=== PATIENT | male | born 1965 | race Caucasian/White ===

== ENCOUNTER 2025-09-30 08:27 | Outpatient (OUT) | payer BC, SELFPAY ==
--- OUTSIDE RECORDS SUMMARY | 2025-04-29 03:45 | XMS_ITS ---
Author Organization [facility] vices Address [address] [place], [place] [id number] Care Team Providers Care Bell Staff Name Role Phone Gardenia Zheng [phone] REASON FOR VISIT Tx. 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 Tx. Plan Prior. 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 Plan: * Treatment: * Billing Information: * Visit Code: * Procedure Codes: * Electronic signature of Gardenia Zheng DMD on 09/30/2025 at 08:29 AM ESTSign off status: Pending * Provider: Sara Zheng DMD Date: 0 04/29/2025 Generated for Printing/Faxing/eTransmitting on:?09/30/2025 08:29 AM EST
--- OUTSIDE RECORDS SUMMARY | 2025-09-06 10:30 | XMS_ITS ---
Author Organization [facility] vices Address [address] [place] [phone] Care Team Providers Care Clinical Informatics Physician Name Role Phone Gardenia Zheng Unavailable [phone] Angeli Dixon Unavailable REASON FOR VISIT flu vaccine Social History Sex Assigned At : Social History Observation Description Sex Assigned At Male Encounters Encounter Location Date Provider Diagnosis Main [address] [place] [phone] 09/06/2025 Angeli Dixon Plan Of Treatment Next Appt Details Provider Name:Vidhi Starkey graham, 11/01/2025 07:45:00 AM, [address] [place], [place], [phone], Progress Notes * Diallo LAZO GDOB: [birth year] (60 yo M)Acc No.[id number]:09/06/2025 Nurse Visit Note Patient: Papo Diallo CUMMINGS :?Agneli Dixon, SONYA-CDOB:1965???Age:59 Y ???Sex:MaleDate:09/06/2025Phone:[phone]:[address], [id number] Subjective: * Chief Complaints: * 1 . Flu vaccine. * Medical History: Objective: * Vitals: Assessment: Plan: * Treatment: * Billing Information: * Visit Code: * Procedure Codes: * Electronic signature of JESUS Augustin on 09/30/2025 at 08:30 AM EST Sign off status: Pending * Provider: JESUS Farrar Date: Generated for Printing/Faxing/eTransmitting on:?09/30/2025 08:30 AM EST
--- OUTSIDE RECORDS SUMMARY | 2025-09-16 13:00 | XMS_ITS | Encounter Summary ---
Author Organization [facility] tem Address [id number] [address] [place] [address] Care Team Providers Care Entry Rep Name Role Phone Henry Gordillo APRN-CARY Primary Care Provider + Reason for Referral * Medication Prior Authorization - ClosedSpecialtyDiagnoses / ProceduresReferred By ContactReferred To Contact Diagnoses Cervical disc disorder at C6-C7 level with radiculopathy Henry Gordillo, [employer] [address], [facility] [address] [place] [address] Phone: tel: fax: Referral IDStatusReasonStart DateExpiration DateVisits RequestedVisits [id number] Reason for Visit * ReasonCommentspinched nerve L6-L7 Encounter Details DateTypeDepartmentCare Team (Latest Contact Info)Gpxwektmrlh46/30/2025 2:00 PM EDTOffice Visit [facility] [address] [place] [phone] Henry Gordillo, [employer] [address], [facility] [address] [place] [address] Cervical disc disorder at C6-C7 level with radiculopathy (Primary Dx) Social History Tobacco UseTypesPacks/DayYears UsedDateSmoking Tobacco: NeverSmokeless Tobacco: NeverAlcohol UseStandard Drinks/WeekCommentsYes0 (1 standard drink = 0.6 oz pure alcohol)6 drinks per weekPHQ-2AnswerDate RecordedTotal Aqkwx600/30/2025Childcare AnswerDate KhcrqhddCczcjntopPhhrbeu23/12/2019EmploymentAnswerDate Recorded BmvpltmoqeWahjssi38/12/2019Hunger ScreeningAnswerDate RecordedWithin the past 12 months we worried whether our food would run out before we got money to buy more.Never True09/16/2025Within the past 12 months the food we bought just didn't last and we didn't have money to get more.Never True09/16/2025Purpose - LifeAnswerDate RecordedPurpose and direction in fmjhYqypbap74/12/2021ex and Gender InformationValueDate RecordedSex Assigned at BirthNot on fileLegal Sex Male06/23/2015 11:51 AM EDTGender IdentityNot on fileSexual OrientationNot on filedocumented as of this encounter Last Filed Vital Signs Vital SignReadingTime TakenCommentsBlood Lkfpevqx220/8809/16/2025 1:59 PM EDT Hcvac573609/16/2025 1:59 PM PGBSntswtuwkch42.2 ??C (97.1 ??F)09/16/2025 1:59 PM EDTRespiratory Usun2863 1:59 PM EDTOxygen Baqsrnwigd48%09/16/2025 1:59 PM EDTInhaled Oxygen Concentration--Gidecp891 kg (229 lb 3.2 oz)09/16/2025 1:59 PM WRGRvcmrj110.8 cm (5' 10 )09/16/2025 1:59 PM EDTBody Mass Index32.89 09/16/2025 1:59 PM EDTdocumented in this encounter Progress Notes * Henry Gordillo, [employer] - 09/16/2025 2:00 PM EDT IM PROGRESS NOTE Patient - Diallo Crenshaw Age - 59 y.o. - 1965 ASSESSMENT & PLAN 1. Cervical disc disorder at C6-C7 level with radiculopathy (Primary) - continue diclofenac as previously prescribed - Tylenol as needed for pain - tramadol as needed for breakthrough pain - range of motion exercises - heat or ice as needed - continue to follow with chiropractor as previously scheduled - Decadron daily as requested by chiropractor - dexAMETHasone 20 mg tablet; Take 20 mg by mouth daily with breakfast for 5 days. Dispense: 5 tablet; Refill: 0 Subjective The following portions of the patient's history were reviewed and updated as appropriate: allergies, current medications, past family history, past medical history, past social history, past surgicalhistory and problem list. He is here because he is having issues neck pain. He went to the urgent care and they told him he has a strained muscle. He then went to the chiropractor who told him he has a pinched nerve a c6-c7. Neck Pain The current episode started 1 to 4 weeks ago. The problem occurs constantly. The problem has been gradually worsening. The pain is present in the right side and midline. The quality of the pain is described as stabbing and aching. The pain is at a severity of 3/10. The pain is mild. The symptoms are aggravated by position. Associated symptoms include numbness and tingling. Pertinent negatives include no fever, headaches, leg pain, pain with swallowing, paresis or weakness. He has tried acetaminophen, oral narcotics, muscle relaxants and chiropractic manipulation for the symptoms. The treatment provided mild relief. Review of Systems Constitutional: Negative for fever. Musculoskeletal: Positive for neck pain. Neurological: Positive for tingling and numbness. Negative for weakness and headaches. Exam BP 140/88 (BP Site: Left Arm, BP Postition: Sitting, BP CUFF SIZE: M (9-13 inches)) Pulse 85 Temp 36.2 ??C (97.1 ??F) (Tympanic) Resp 18 Ht 177.8 cm (5' 10 ) Wt 104 kg (229 lb 3.2 oz) SpO2 99% BMI 32.89 kg/m?? Physical Exam Vitals and nursing note reviewed. Constitutional: General: He is not in acute distress. HENT: Head: Normocephalic and atraumatic. Musculoskeletal: Cervical back: Tenderness present. Pain with movement present. No spinous process tenderness or muscular tenderness. Decreased range of motion. Skin: General: Skin is warm and dry. Neurological: General: No focal deficit present. Mental Status: He is alert and oriented to person, place, and time. Psychiatric: Mood and Affect: Mood normal. Behavior: Behavior normal. Meds Current Outpatient Medications: diclofenac (VOLTAREN) 50 mg EC tablet, Take 1 tablet (50 mg total) by mouth in the morning and 1 tablet (50 mg total) before bedtime., Disp: , Rfl: traMADoL (ULTRAM) 50 mg tablet, Take 1 tablet (50 mg total) by mouth every 6 (six) hours as needed for pain., Disp: , Rfl: aspirin 81 mg, Take 1 tablet (81 mg total) by mouth in the morning., Disp: , Rfl: dexAMETHasone 20 mg tablet, Take 20 mg by mouth daily with breakfast for 5 days., Disp: 5 tablet, Rfl: 0 fluticasone (FLONASE) 50 mcg/actuation nasal spray, Administer 1 spray into each nostril in the morning., Disp: , Rfl: Lab Results No visits with results within 1 Month(s) from this visit. Latest known visit with results is: Hospital Outpatient Visit on 09/29/2024 Component Date Value Ref Range Status Sodium 09/29/2024 135 134 - 146 mmol/L Final Potassium, Bld 09/29/2024 4.4 3.5 - 5.0 mmol/L Final Chloride 09/29/2024 99 98 - 109 mmol/L Final CO2 09/29/2024 28 22 - 32 mmol/L Final Anion gap 09/29/2024 8 5 - 15 mmol/L Final BUN 09/29/2024 8 5 - 23 mg/dL Final Creatinine 09/29/2024 0.89 0.60 - 1.30 mg/dL Final Glucose 09/29/2024 111 (H) 65 - 99 mg/dL Final Calcium 09/29/2024 9.0 8.5 - 10.5 mg/dL Final Total Protein 09/29/2024 6.4 6.0 - 8.0 g/dL Final Albumin 09/29/2024 3.9 3.2 - 5.3 g/dL Final Alkaline Phosphatase 09/29/2024 46 39 - 130 U/L Final AST 09/29/2024 31 0 - 41 U/L Final ALT 09/29/2024 24 0 - 40 U/L Final Total bilirubin 09/29/2024 0.4 0.3 - 1.2 mg/dL Final eGFR (CKD-EPI)non-race dependent 09/29/2024 >90 >59 ml/min/1.73sq.m Final Prostatic specific antigen, screen 09/29/2024 1.15 0.00 - 4.00 ng/mL Final Hemoglobin A1C 09/29/2024 5.8 (H) 4.4 - 5.6 % Final Average glucose 09/29/2024 120 mg/dL Final Cholesterol 09/29/2024 202 (H) 150 - 200 mg/dL Final Triglycerides 09/29/2024 102 27 - 150 mg/dL Final HDL Cholesterol 09/29/2024 53 >39 mg/dL Final VLDL 09/29/2024 20 0 - 30 mg/dL Final LDL (calc) 09/29/2024 129 <130 mg/dL Final Cholesterol:HDL Ratio 09/29/2024 3.8 1.0 - 5.0 Final White Blood Cells 09/29/2024 6.1 4.0 - 11.0 X10E9/L Final RBC count 09/29/2024 4.69 4.10 - 5.70 X10E12/L Final Hemoglobin 09/29/2024 15.3 13.0 - 17.0 g/dL Final Hematocrit 09/29/2024 43.9 39 - 49 % Final MCV 09/29/2024 94 80 - 100 fL Final MCH 09/29/2024 32.6 27 - 34 pg Final MCHC 09/29/2024 34.9 32 - 36 g/dL Final RDW 09/29/2024 13.3 11.5 - 15.0 % Final Platelets 09/29/2024 244 150 - 450 X10E9/L Final MPV 09/29/2024 8.1 7 - 12 fL Final % neutrophils 09/29/2024 48.2 % Final % lymphocytes 09/29/2024 38.8 % Final % monocytes 09/29/2024 6.0 % Final % eosinophils 09/29/2024 5.2 % Final % Basophils 09/29/2024 1.8 % Final Neutrophils Absolute (A) 09/29/2024 2.9 1.5 - 6.6 X10E9/L Final Lymphocytes Absolute 09/29/2024 2.4 1.0 - 3.5 X10E9/L Final Monocytes Absolute 09/29/2024 0.4 0 - 0.9 X10E9/L Final Eosinophils Absolute 09/29/2024 0.3 0.0 - 0.4 X10E9/L Final Basophils Absolute 09/29/2024 0.1 0.0 - 0.2 X10E9/L Final Other Testing No results found. Return for Next scheduled follow up. [place] [facility] Office: [phone] This note is dictated with the use of M*Modal. Please note that this dictation was completed with computer voice recognition software. Quite often unanticipated grammatical, syntax, homophones, and other interpretive errors are inadvertently transcribed by the computer software. Please disregard these errors. Please excuse any errors that have escaped final proofreading. YOBANY Boyd 09/16/25 1440 documented in this encounter Plan of Treatment DateTypeDepartmentCare Team (Latest Contact Info)Wuascailyji04/18/2025 7:40 AM ESTOffice Visit [facility] [address] [place] [phone] Henry Gordillo APRN-CNP [address], [address] [address] 10/07/2025 7:30 AM ESTAppointment [facility] [address] [place] [phone] Cervical disc disorder at C6-C7 level with huqskfmpzyhro04/17/2025 8:45 AM EST Office Visit [facility] [address] [place] [phone] Natividad Bermeo, MELONY [address] [place] [address] documented as of this encounter Visit Diagnoses Diagnosis Cervical disc disorder at C6-C7 level with radiculopathy- Primary Cervical disc disorder at C6-C7 level with radiculopathy documented in this encounter Additional Health Concerns AssessmentNoted TimePHQ-9 Depression Total Score: 1:58 PM EDTA Body Mass Index follow-up plan has been documented for the wxetjeo7602/09/2025 3:36 PM EDTdocumented as of this encounter Care Teams Team MemberRelationshipSpecialtyStart DateEnd Date Henry Gordillo, [employer] [address] [place] [address] PCP - GeneralInternal Medicine07/15/25documented as of this encounter
--- OUTSIDE RECORDS SUMMARY | 2025-09-22 08:15 | XMS_ITS | Encounter Summary ---
Author Organization [facility] tem Address [facility] [address] [place] [address] Care Team Providers Care Tie In Machine Operator Name Role Phone Henry Gordillo Reji EVANS-BOAT CLEANER Primary Care Provider + Reason for Visit * ReasonCommentsKnee Pain Encounter Details DateTypeDepartmentCare Team (Latest Contact Info)Wjjnsdsawbb27/05/2025 8:15 AM ESTOffice Visit [facility] [address] [place] [phone] Jose Carlos Bermeo PA-C [address] [facility], 2nd [place] [address] Chronic pain of right knee (Primary Dx); Primary osteoarthritis of right knee; Primary osteoarthritis of left knee Social History Tobacco UseTypesPacks/DayYears UsedDateSmoking Tobacco: NeverSmokeless Tobacco: NeverAlcohol UseStandard Drinks/WeekCommentsYes0 (1 standard drink = 0.6 oz pure alcohol)6 drinks per weekPHQ-2AnswerDate RecordedTotal Pkyeq362Overall Financial Resource Strain (CARDIA)AnswerDate RecordedHow hard is it for you to pay for the very basics like food, housing, medical care, and heating?Not hard at all09/23/2025PRAPARE - TransportationAnswerDate RecordedIn the past 12 months, has lack of transportation kept you from medical appointments or from getting medications?No09/23/2025In the past 12 months, has lack of transportation kept you from meetings, work, or from getting things needed for daily living?No09/23/2025Housing InstabilityAnswerDate RecordedAre you worried or concerned that in the next two months you may not have stable housing that you own, rent or stay in as a part of a household?No5ChildcareAnswer Date TqrgbdpbShebytqxeOzblous09/12/2019EmploymentAnswerDate RecordedEmployment Aldhzrh0604/29/2019Hunger ScreeningAnswerDate RecordedWithin the past 12 months we worried whether our food would run out before we got money to buy more.Never True09/23/2025Within the past 12 months the food we bought just didn't last and we didn't have money to get more.Never True09/23/2025Purpose - LifeAnswerDate RecordedPurpose and direction in rauqEqkkuzq73/12/2021ex and Gender Information ValueDate RecordedSex Assigned at BirthNot on fileLegal UavNhib6306/23/2015 11:51 AM EDTGender IdentityNot on fileSexual OrientationNot on filedocumented as of this encounter Last Filed Vital Signs Vital SignReadingTime TakenCommentsBlood Ecblhjwu332/9609/22/2025 8:10 AM EST Ezwpc845509/22/2025 8:10 AM ESTTemperature--Respiratory Vqqq667811/22/2024 8:10 AM ESTOxygen Tmjwpaahto63%09/22/2025 8:10 AM ESTInhaled Oxygen Concentration-- Yvphuz144 kg (227 lb)09/22/2025 8:10 AM ZSPAnekgx452.8 cm (5' 10 )09/22/2025 8:10 AM ESTBody Mass Index32.5709/22/2025 8:10 AM ESTdocumented in this encounter Progress Notes * Jose Carlos Bermeo PA-C - 09/22/2025 8:15 AM EST [facility] [address] [place] [address] Patient: Diallo Crenshaw Sex: male : 1965 Age: 60 y.o. PCP: Henry Gordillo APRN-BOAT CLEANER 09/22/2025 Diallo Crenshaw is here for a 3 month follow up. He reports his pain is under control at this time. Chief Complaint Patient presents with Knee Pain HPI: Dr Resendiz who reports he has arthritic pain in bilateral knees and referred him to pain management. Patient had a cortisone injection approx 2-[address] Roach office for his knees which provided mild relief. Patient does home exercises daily for his bilateral knee pain. Patient currently seeing Chiropractor for pinched nerve in neck 3 weeks ago (as of 09/22/2025) and numbness in the right hand Knee Pain Incident onset: October 2024 is when pain became much worse. There was no injury mechanism. The pain is present in the left knee and right knee (right knee worse then left). Quality: sharp, at timesa burning pain. Pain scale: right knee 5/10; left knee 3/10. The pain is moderate. The pain has been Constant since onset. Associated symptoms include a loss of motion (decreased ROM bilaterally in knees) and muscle weakness (BLE). Pertinent negatives include no inability to bear weight. He reportsno foreign bodies present. The symptoms are aggravated by movement, palpation and weight bearing. 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 The effect of pain on patient's ADLS: Moderate Impairment. Past Medical History: Diagnosis Date Bilateral knee pain Erectile dysfunction Low back pain Obesity Sinusitis, chronic Visual impairment glasses Past Surgical History: Procedure Laterality Date APPENDECTOMY ARTHROSCOPY KNEE with partial medial menisectomy Right 07/23/2018 Performed by Sherif Boykin DO at [facility] TONSILLECTOMY Allergies Allergen Reactions Penicillins Family History Problem Relation Age of Onset Stroke Mother Hyperlipidemia Mother Hypertension Mother Heart failure Mother Breast cancer Mother COPD Mother Diabetes Father Heart disease Father Hyperlipidemia Father Heart attack Father Diabetes Son Social History Socioeconomic History Marital status: Single Spouse name: Not on file Number of children: Not on file Years of education: Not on file Highest education level: Not on file Occupational History Not on file Tobacco Use Smoking status: Never Smokeless tobacco: Never Substance and Sexual Activity Alcohol use: Yes Comment: 6 drinks per week Drug use: No Sexual activity: Yes Partners: Female Other Topics Concern Not on file Social History Narrative Not on file Social Drivers of Health Financial Resource Strain: Not on file Food Insecurity: No Food Insecurity (09/22/2025) Hunger Screening Food Insecurity - Worry: Never True Food Insecurity - Inability: Never True Transportation Needs: Not on file Physical Activity: Not on file Stress: Not on file Social Connections: Not on file Interpersonal Safety: Not on file Housing Instability: Not on file Review of Systems Constitutional: Negative. HENT: Negative. Respiratory: Negative. Cardiovascular: Negative. Gastrointestinal: Negative. Endocrine: Negative. Genitourinary: Negative. Skin: Negative. Vital Signs: BP (!) 145/96 (BP Site: Left Arm, BP Postition: Sitting) Pulse 79 Resp 18 Ht 177.8 cm (5' 10 ) Wt 103 kg (227 lb) SpO2 97% BMI 32.57 kg/m?? Physical Exam: GENERAL - Healthy patient that appears stated age. HEENT - Normocephalic / Atraumatic, Extraoccular movements intact, trachea midline, thyroid within normal limits. CV - pulse regular, Warm extremities with appropriate color of nailbeds. RESP - No obvious wheezing, No Shortness of Breath, No overexertion response to exam maneuvers. COORDINATION - remains intact. PSYCH - Alert and Oriented x4, Attentive and appropriate, constitutionally normal, displays normal mood and affect per situation, answered questions appropriately during examination, demonstrated appropriate attention during discussion, demonstrated appropriate cognitive reasoning and understandingof the medical condition by asking appropriate questions regarding the diagnosis and risks/benefits/alternatives of treatment modalities. No obvious deficits in memory, reasoning, or intellect. Distal Joint Exam - Lower Extremity: SKIN - No rashes or bruising in the area of the patient???s pain. EXTREMITIES - Lower extremities are warm, with minimal edema and palpable pulses. Strength is 5/5 all muscle groups of the bilateral lower extremities. There is no obvious atrophy, fasciculations, or spasms. There are no notable sensory deficits in the overlying dermatomal distributions. Gait remains normal. Examination of the Bilateral Right greater than Left knee reveals tenderness to palpation over the superior, inferior, lateral, and medial aspect of the knee. Some swelling is noted without significant erythema. Pain is elicited with flexion and extension of the knee both actively and passively. Some grinding is noted with these motions. There is no notable ligamental laxity or instability and drawer test is negative. Assessment/Treatment Plan: Diallo was seen today for knee pain. Diagnoses and all orders for this visit: Chronic pain of right knee Primary osteoarthritis of right knee Primary osteoarthritis of left knee Monitor Follow up 1 month The medications prescribed have been reviewed for medication interactions/contraindications and/or for upcoming procedures: continue current medication regimen without any changes. DISCUSSION: Treatment options discussed with patient and all questions answered to patient's satisfaction. Discussed the rules and regulations surrounding prescription of opioids and compliance at length. Failure to follow the rules and regulation will result in tapering and discontinuation of medications if applicable. Prescribed medication that requires intensive monitoring for toxicity We do not currently prescribeany controlled substance from this practice. Treatment plans discussed but not opted for at this time: Bilateral steroid knee injections. Pain is under adequate control. At this time it does appear that the patient???s pain is under adequate control with conservative care. It is felt that we should continue this approach and continue to monitor these symptoms and address them again in the future if they become more problematic. This approach was discussed with the patient and they are in agreement. The spine model was demonstrated and Xray and MRI was reviewed and used to explain the condition. OARRS: Reviewed. Scribe Statement: IPinky CNA, scribed for and in the presence of JOSE CARLOS BERMEO PA-C who performed the above service. Pinky Perea CNA 09/22/25 0854 Jose Carlos Bermeo PA-C 09/22/25 0855 documented in this encounter Plan of Treatment DateTypeDepartmentCare Team (Latest Contact Info)Twbwpfkonpn00/18/2025 7:40 AM ESTOffice Visit [facility] [address] [place] [address] Henry Gordillo, DIETIST-BOAT CLEANER [address], [facility] [address] [place], [place] [phone] 10/07/2025 7:30 AM ESTAppointment [facility] [address] [place] [phone] Cervical disc disorder at C6-C7 level with kikxctbtyfjmb74/17/2025 8:45 AM EST Office Visit [facility] [address] [place] [phone] Jose Carlos Bermeo, PAAaliyah [address] [facility], [address]nd [place] [address] documented as of this encounter Visit Diagnoses Diagnosis Chronic pain of right knee- Primary Primary osteoarthritis of right knee Primary osteoarthritis of left knee Cervical disc disorder at C6-C7 level with radiculopathy documented in this encounter Additional Health Concerns AssessmentNoted TimePHQ-9 Depression Total Score: 1:58 PM EDTA Body Mass Index follow-up plan has been documented for the tydvzsw4002/09/2025 3:36 PM EDTdocumented as of this encounter Care Teams Team MemberRelationshipSpecialtyStart DateEnd Date Henry Gordillo, CRISTINA-BOAT CLEANER [address] [place] [address] PCP - GeneralInternal Medicine07/15/25documented as of this encounter
--- OUTSIDE RECORDS SUMMARY | 2025-09-23 11:45 | XMS_ITS | Encounter Summary ---
Author Organization [facility] [employer] [facility] tem Address [id number] [address] [place] [address] Care Team Providers Care Metal Organ Pipe Maker Name Role Phone Henry Gordillo APRNCARY Primary Care Provider + Reason for Referral * Medication Prior Authorization - AuthorizedSpecialtyDiagnoses / Procedures Referred By ContactReferred To Contact Diagnoses Cervical disc disorder at C6-C7 level with radiculopathy Henry Gordillo, CRISTINA-STAFF SCIENTIST [address], [place] [address] Phone: tel: fax: Referral IDStatusReasonStart DateExpiration DateVisits RequestedVisits [id number]/6/20252/ * Rehabilitation - Outpatient (Routine) - AuthorizedSpecialtyDiagnoses / ProceduresReferred By ContactReferred To ContactRehabilitation Diagnoses Cervical disc disorder at C6-C7 level with radiculopathy Henry Gordillo, CRISTINA-CARY [address], [facility] [address] [place] [id number] Phone: tel: fax: [facility] [place] - Total Rehab [address] [place] [address] Phone: tel: fax: [facility]Status[facility] DateExpiration DateVisits RequestedVisits [id number] Specialty Services Required * Diagnostic Imaging (Routine) - Pending ReviewSpecialtyDiagnoses / Procedures Referred By ContactReferred To ContactRadiology Diagnoses Cervical disc disorder at C6-C7 level with radiculopathy Procedures MR cervical spine without contrast Henry Gordillo, CRISTINA-CARY [address], [address] [address] Phone: tel: fax: [facility]Status[facility] DateExpiration DateVisits RequestedVisits [id number] Reason for Visit * ReasonCommentspinced nerve and it worsen=8 Encounter Details DateTypeDepartmentCare Team (Latest Contact Info)Enovhdvzqsg70/06/2025 11:45 AM ESTOffice Visit [facility] - Family Medicine [address] [place] [address] Henry Gordillo, [facility] [address], [facility] [address] [place] [address] Cervical disc disorder at C6-C7 level with radiculopathy (Primary Dx) Social History Tobacco UseTypesPacks/DayYears UsedDateSmoking Tobacco: NeverSmokeless Tobacco: NeverAlcohol UseStandard Drinks/WeekCommentsYes0 (1 standard drink = 0.6 oz pure alcohol)6 drinks per weekPHQ-2AnswerDate RecordedTotal Qozle409Overall Financial Resource Strain (CARDIA)AnswerDate RecordedHow hard is [...] stay in as a part of a household?No09/23/2025hildcareAnswer Date NmvuqmhpUiqqzltmjQlkunfa60/12/2019EmploymentAnswerDate RecordedEmployment Moutumy1204/29/2019Hunger ScreeningAnswerDate RecordedWithin the past 12 months we worried whether our food would run out before we got money to buy more.Never True09/23/2025Within the past 12 months the food we bought just didn't last and we didn't have money to get more.Never True09/23/2025Purpose - LifeAnswerDate RecordedPurpose and direction in uxgxHevvdxb48/12/2021ex and Gender Information ValueDate RecordedSex Assigned at BirthNot on fileLegal FfsRdrl7306/23/2015 11:51 AM EDTGender IdentityNot on fileSexual OrientationNot on filedocumented as of this encounter Last Filed Vital Signs Vital SignReadingTime TakenCommentsBlood Ovzehnfn996/7209/23/2025 11:52 AM EST Glnqd264809/23/2025 11:52 AM HZODcjqzqatufp64.2 ??C (97.2 ??F)09/23/2025 11:52 AM ESTRespiratory Skgw214411/23/2024 11:52 AM ESTOxygen Qobjprffuq17%09/23/2025 11:52 AM ESTInhaled Oxygen Concentration--Plxezh606.8 kg (231 lb)09/23/2025 11:52 AM EDZItqhpk863.8 cm (5' 10 )09/23/2025 11:52 AM ESTBody Mass Index33.15111/23/2024 11:52 AM ESTdocumented in this encounter Progress Notes * Henry Gordillo, HAND GRINDER-STAFF SCIENTIST - 09/23/2025 11:45 AM EST IM PROGRESS NOTE Patient - Diallo Crenshaw Age - 60 y.o. - 1965 Subjective The following portions of the patient's history were reviewed and updated as appropriate: allergies, current medications, past family history, past medical history, past social history, past surgicalhistory and problem list. Arm Pain The incident occurred more than 1 week ago. There was no injury mechanism. The pain is present in the right hand, right forearm and right fingers. Associated symptoms include muscle weakness, numbness and tingling. The symptoms are aggravated by movement. He has tried heat, ice and acetaminophen for the symptoms. The treatment provided no relief. Review of Systems Neurological: Positive for tingling and numbness. Exam BP 122/72 (BP Site: Left Arm, BP Postition: Sitting, BP CUFF SIZE: L (13-17 inches)) Pulse 76 Temp 36.2 ??C (97.2 ??F) (Temporal) Resp 18 Ht 177.8 cm (5' 10 ) Wt 104.8 kg (231 lb) SpO2 98% BMI 33.15 kg/m?? Physical Exam Vitals and nursing note reviewed. Constitutional: General: He is not in acute distress. HENT: Mouth/Throat: Mouth: Mucous membranes are moist. Musculoskeletal: Right shoulder: Tenderness present. No bony tenderness. Normal range of motion. Decreased strength.Normal pulse. Right upper arm: Tenderness present. Cervical back: Normal range of motion. No signs of trauma, rigidity or torticollis. Pain with movement and muscular tenderness present. No spinous process tenderness. Normal range of motion. Right lower leg: No edema. Left lower leg: No edema. Skin: General: Skin is warm and dry. Capillary Refill: Capillary refill takes less than 2 seconds. Neurological: General: No focal deficit present. Mental Status: He is alert and oriented to person, place, and time. Psychiatric: Mood and Affect: Mood normal. Behavior: Behavior normal. Meds Current Outpatient Medications: acetaminophen (TYLENOL EXTRA STRENGTH) 500 mg tablet, Take 1 tablet (500 mg total) by mouth every 6(six) hours as needed for pain., Disp: , Rfl: aspirin 81 mg, Take 1 tablet (81 mg total) by mouth in the morning., Disp: , Rfl: fluticasone (FLONASE) 50 mcg/actuation nasal spray, Administer 1 spray into each nostril in the morning., Disp: , Rfl: ibuprofen (MOTRIN) 800 mg tablet, Take 1 tablet (800 mg total) by mouth every 8 (eight) hours as needed for pain., Disp: 60 tablet, Rfl: 2 traMADoL (ULTRAM) 50 mg tablet, Take 1 tablet (50 mg total) by mouth every 6 (six) hours as needed for pain., Disp: 30 tablet, Rfl: 0 Lab Results No visits with results within [...] X10E9/L Final Other Testing No results found. ASSESSMENT & PLAN 1. Cervical disc disorder at C6-C7 level with radiculopathy (Primary) -ibuprofen 800 mg as needed -Tylenol as needed for breakthrough pain -continue use heat and ice for comfort -referral to physical therapy -MRI C-spine ordered. -continue range of motion exercises - MR cervical spine without contrast; Future - Ambulatory referral to Physical Therapy; Future - ibuprofen (MOTRIN) 800 mg tablet; Take 1 tablet (800 mg total) by mouth every 8 (eight) hours as needed for pain. Dispense: 60 tablet; Refill: 2 - traMADoL (ULTRAM) 50 mg tablet; Take 1 tablet (50 mg total) by mouth every 6 (six) hours as needed for pain. Dispense: 30 tablet; Refill: 0 OARRS/MAPPS was reviewed by YOBANY Boyd today. There was not any indication of medication diversion, or non-compliance. Return for Next scheduled follow up. [place] [facility] Office: [phone] This note is dictated with the use of M*Modal. Please note that this dictation was completed with computer voice recognition software. Quite often unanticipated grammatical, syntax, homophones, and other interpretive errors are inadvertently transcribed by the computer software. Please disregard these errors. Please excuse any errors that have escaped final proofreading. YOBANY Boyd 09/23/25 4570 documented in this encounter Plan of Treatment DateTypeDepartmentCare Team (Latest Contact Info)Uyqkvvkrhqt03/18/2025 7:40 AM ESTOffice Visit [facility] [address] Henry Gordillo, HAND GRINDER-STAFF SCIENTIST [address], [address] [address] 10/07/2025 7:30 AM ESTAppointment [facility] - Total Rehab [address] [place] [phone] Cervical disc disorder at C6-C7 level with puzznfvooiapl34/17/2025 8:45 AM EST Office Visit [facility] - [facility] Management Clinic [address] [place] [phone] Natividad Bermeo PA-C [address] [facility], [address] [place], [place] [phone] NameTypePriorityAssociated DiagnosesOrder ScheduleMR cervical spine without contrastImagingRoutine Cervical disc disorder at C6-C7 level with radiculopathy Expected: 09/23/2025, Expires: 09/23/2026NameTypePriorityAssociated Diagnoses Order ScheduleAmbulatory referral to Physical TherapyOutpatient ReferralRoutine Cervical disc disorder at C6-C7 level with radiculopathy 1 Occurrences starting 09/23/2025 until 09/23/2026documented as of this encounter Visit Diagnoses Diagnosis Cervical disc disorder at C6-C7 level with radiculopathy- Primary Cervical disc disorder at C6-C7 level with radiculopathy documented in this encounter Additional Health Concerns AssessmentNoted TimePHQ-9 Depression Total Score: 1:58 PM EDTA Body Mass Index follow-up plan has been documented for the lctsayu1202/09/2025 3:36 PM EDTdocumented as of this encounter Care Teams Team MemberRelationshipSpecialtyStart DateEnd Date Henry Gordillo, HAND GRINDER-STAFF SCIENTIST [address] [place] [address] PCP - GeneralInternal Medicine07/15/25documented as of this encounter
--- OUTSIDE RECORDS SUMMARY | 2025-09-30 08:29 | XMS_ITS | Encounter Summary ---
Author Organization [facility] tem Address [id number] [address] [place] [address] Care Team Providers Care Measurement Technician Name Role Phone JuanHenry hardy Reji WAITER/WAITRESS-BUSINESS QUALITY ASSURANCE ANALYST Primary Care Provider + Encounter Details DateTypeDepartmentCare Team (Latest Contact Info)Tnfreiqkefl59/06/2025Travel Social History Tobacco UseTypesPacks/DayYears UsedDateSmoking Tobacco: NeverSmokeless Tobacco: NeverAlcohol UseStandard Drinks/WeekCommentsYes0 (1 standard drink = 0.6 oz pure alcohol)6 drinks per weekPHQ-2AnswerDate RecordedTotal Pnysh743Overall Financial Resource Strain (CARDIA)AnswerDate RecordedHow hard is [...] as a part of a household?No09/23/2025hildcareAnswer Date FwymnetvAhkqykwquIdkwfuk43/12/2019EmploymentAnswerDate RecordedEmployment Qidehmr7204/29/2019Hunger ScreeningAnswerDate RecordedWithin the past 12 months we worried whether our food would run out before we got money to buy more.Never True09/23/2025Within the past 12 months the food we bought just didn't last and we didn't have money to get more.Never True09/23/2025Purpose - LifeAnswerDate RecordedPurpose and direction in xhkjYdszbyg83/12/2021ex and Gender Information ValueDate RecordedSex Assigned at BirthNot on fileLegal BhrWonv8306/23/2015 11:51 AM EDTGender IdentityNot on fileSexual OrientationNot on filedocumented as of this encounter Plan of Treatment DateTypeDepartmentCare Team (Latest Contact Info)Sooucgfoehp52/18/2025 7:40 AM ESTOffice Visit [facility] - [facility] Medicine [address] [place] [address] Henry Gordillo, WAITER/WAITRESS-BUSINESS QUALITY ASSURANCE ANALYST [address], [facility] [address] [place] [address] 10/07/2025 7:30 AM ESTAppointment [facility] - Total Rehab [address] [place] [phone] Cervical disc disorder at C6-C7 level with pypzpvpnltyps53/17/2025 8:45 AM EST Office Visit [facility] - Pain Management Clinic [address] [place] [phone] Natividad Bermeo, PAAaliyah [address] [facility], 2nd Floor [place], [place] [phone] documented as of this encounter Visit Diagnoses Not on filedocumented in this encounter Additional Health Concerns AssessmentNoted TimePHQ-9 Depression Total Score: 1:58 PM EDTA Body Mass Index follow-up plan has been documented for the fwbmcss7202/09/2025 3:36 PM EDTdocumented as of this encounter Care Teams Team MemberRelationshipSpecialtyStart DateEnd Date Henry Gordillo, WAITER/WAITRESS-BUSINESS QUALITY ASSURANCE ANALYST [address] [place] [address] PCP - GeneralInternal Medicine07/15/25documented as of this encounter
--- OUTSIDE RECORDS SUMMARY | 2025-09-30 08:29 | XMS_ITS | Encounter Summary ---
Author Organization [employer] tem Address [id number] [address] [place] [address] Care Team Providers Care Automobile Carpets Molder Name Role Phone JuanHenry hardy Reji CHIEF MERCHANDISING OFFICER-DESIGN ANALYST Primary Care Provider + Encounter Details DateTypeDepartmentCare Team (Latest Contact Info)Nxvcmxwvgjd11/10/2025Travel Social History Tobacco UseTypesPacks/DayYears UsedDateSmoking Tobacco: NeverSmokeless Tobacco: NeverAlcohol UseStandard Drinks/WeekCommentsYes0 (1 standard drink = 0.6 oz pure alcohol)6 drinks per weekPHQ-2AnswerDate RecordedTotal Rjpvj420Overall Financial Resource Strain (CARDIA)AnswerDate RecordedHow hard is [...] as a part of a household?No09/23/2025hildcareAnswer Date SbjrcvtgYwjhxwxmcXszpvgj71/12/2019EmploymentAnswerDate RecordedEmployment Xtcgqpz7604/29/2019Hunger ScreeningAnswerDate RecordedWithin the past 12 months we worried whether our food would run out before we got money to buy more.Never True09/23/2025Within the past 12 months the food we bought just didn't last and we didn't have money to get more.Never True09/23/2025Purpose - LifeAnswerDate RecordedPurpose and direction in xkepGqtbsig73/12/2021ex and Gender Information ValueDate RecordedSex Assigned at BirthNot on fileLegal QkeSrlc6206/23/2015 11:51 AM EDTGender IdentityNot on fileSexual OrientationNot on filedocumented as of this encounter Plan of Treatment DateTypeDepartmentCare Team (Latest Contact Info)Qnziazdejxj06/18/2025 7:40 AM ESTOffice Visit [facility] [address] [place] [address] Henry Gordillo, CHIEF MERCHANDISING OFFICER-DESIGN ANALYST [address] [place] [address] 10/07/2025 7:30 AM ESTAppointment [facility] [address] [place] [phone] Cervical disc disorder at C6-C7 level with sqndcqhbfctwo10/17/2025 8:45 AM EST Office Visit [facility] - Pain Management Clinic [address] [place] [phone] Natividad Bermeo, PAAaliyah [address] [facility], 2nd Floor [place], [place] [phone] documented as of this encounter Visit Diagnoses Not on filedocumented in this encounter Additional Health Concerns AssessmentNoted TimePHQ-9 Depression Total Score: 1:58 PM EDTA Body Mass Index follow-up plan has been documented for the vvgfyyy4302/09/2025 3:36 PM EDTdocumented as of this encounter Care Teams Team MemberRelationshipSpecialtyStart DateEnd Date Henry Gordillo, CHIEF MERCHANDISING OFFICER-DESIGN ANALYST [address] [place] [address] PCP - GeneralInternal Medicine07/15/25documented as of this encounter
--- OUTSIDE RECORDS SUMMARY | 2025-09-30 08:29 | XMS_ITS | Encounter Summary ---
Author Organization [facility] tem Address [facility]C50949 [address] [place] [address] Care Team Providers Care Nut Cracker Name Role Phone Henry Gordillo Reji EVANS-CLOTHING BUSHELER Primary Care Provider + Reason for Visit * ReasonOnset DateCommentsChange MRI /07/2025 Encounter Details DateTypeDepartmentCare Team (Latest Contact Info)Kaxyqexchcs17/07/2025Nurse Triage [facility] [address] [place] [phone] Deisy Bernal RN Social History Tobacco UseTypesPacks/DayYears UsedDateSmoking Tobacco: NeverSmokeless Tobacco: NeverAlcohol UseStandard Drinks/WeekCommentsYes0 (1 standard drink = 0.6 oz pure alcohol)6 drinks per weekPHQ-2AnswerDate RecordedTotal Wqqbz548Overall Financial Resource Strain (CARDIA)AnswerDate RecordedHow hard is [...] as a part of a household?No5ChildcareAnswer Date SfkysjwaZhdhexrtiJpdgkdn61/12/2019EmploymentAnswerDate RecordedEmployment Nhlfqls3204/29/2019Hunger ScreeningAnswerDate RecordedWithin the past 12 months we worried whether our food would run out before we got money to buy more.Never True09/23/2025Within the past 12 months the food we bought just didn't last and we didn't have money to get more.Never True09/23/2025Purpose - LifeAnswerDate RecordedPurpose and direction in kqiwPvlumtv06/12/2021ex and Gender Information ValueDate RecordedSex Assigned at BirthNot on fileLegal IppCozi9506/23/2015 11:51 AM EDTGender IdentityNot on fileSexual OrientationNot on filedocumented as of this encounter Miscellaneous Notes * Telephone Encounter - Deisy Bernal RN - 09/24/2025 2:57 PM EST Contract: [id number] Would like to change his MRI appointment to a new facility, has one schedule 10/09 [facility]- can have one schedule at [facility] sooner if an order is sent to them- , [facility] Reason for Disposition [1] Caller requesting NON-URGENT health information AND [2] PCP's office is the best resource Protocols used: Information Only Call - No Triage-A- * Telephone Encounter - YOBANY Boyd - 09/24/2025 2:57 PM EST Please reprint the MRI order for the patient so that they may come in and pick it up to take to [facility] since there is too long of a wait at [facility]. Thank you * Telephone Encounter - Shanice Sweeney CMA - 09/24/2025 2:57 PM EST PRINTED documented in this encounter Plan of Treatment DateTypeDepartmentCare Team (Latest Contact Info)Yekdjnapjll67/18/2025 7:40 AM ESTOffice Visit [facility] Internal [facility] - Family Medicine [address] [place] [address] Henry Gordillo, BODY SHOP MANAGER-CLOTHING BUSHELER [address] [place] [address] 10/07/2025 7:30 AM ESTAppointment [facility] - Total Rehab [address] [place] [phone] Cervical disc disorder at C6-C7 level with blrukzqccbhec06/17/2025 8:45 AM EST Office Visit [facility] - Pain Management Clinic [address] [place] [phone] Natividad Bermeo, PA-C [address] [facility], [address]nd [place] [address] documented as of this encounter Visit Diagnoses Not on filedocumented in this encounter Additional Health Concerns AssessmentNoted TimePHQ-9 Depression Total Score: 1:58 PM EDTA Body Mass Index follow-up plan has been documented for the zgbuklz5102/09/2025 3:36 PM EDTdocumented as of this encounter Care Teams Team MemberRelationshipSpecialtyStart DateEnd Date Henry Gordillo, BODY SHOP MANAGER-CLOTHING BUSHELER [address] [place] [address] PCP - GeneralInternal Medicine07/15/25documented as of this encounter
--- NOTE | 2025-09-30 08:30 | MR_ITS ---
[address] [address] Patient Name: OLEG LAZO MRN: [id number] date: 1965 Sex: M Assigned Patient Location: MRI Current Patient Location: MRI Accession/Order Number: [id number] Exam Date: 09/30/2025 08:50 Report Date: 09/30/2025 16:31 At the request of: JUDI JACOBS APRN Procedure: MR cervical spine wo con EXAMINATION: MRI OF THE CERVICAL SPINE WITHOUT CONTRAST CLINICAL DATA: neuropathy of right arm TECHNIQUE: Multiecho imaging was performed in the sagittal and axial plane without contrast administration. FINDINGS: The craniocervical junction is maintained. Cervical vertebral heights, alignment and bone marrow signal is unremarkable. Cervical cord demonstrates normal signal morphology. Minor disc space narrowing C5-C7. Prevertebral and paraspinal soft tissues are unremarkable. C2-C3: Moderate severe right mild left facet arthropathy. Ekjv-bz-dpgxyaif right-sided and minimal left-sided neural from narrowing. Canal is patent. C3-C4: Uncovertebral hypertrophy and facet arthropathy noted causing wlby-bn-pccsdbqr bilateral neural foraminal narrowing. Canal is patent. C4-C5: Uncovertebral hypertrophy causing mild right and left neural from narrowing. Canal is patent. C5-6: Right subarticular/foraminal extrusion. Uncovertebral spurring. Moderate predominantly right-sided canal narrowing. Moderate severe right-sided and mild left-sided neural from narrowing. C6-C7: Right subarticular zone protrusion versus extrusion protrusion causing moderate predominantly right-sided canal narrowing. Severe right neural foraminal narrowing. Xvjj-vl-hlbpmvtv left-sided foraminal narrowing. C7-T1: Mild to moderate facet arthropathy. Mild foraminal narrowing. Canal is otherwise patent. MR/MR cervical spine wo con IMPRESSION: Multilevel degenerative changes most pronounced from C5 through C7 on the right due to subarticular zone protrusion/extrusions causing severe right foraminal narrowing at C6-C7 and moderate severe neural foraminal narrowing at C5-6 Impression dictated by: Aron Ayoub M.D. 09/30/2025 4:31 PM Dictation Location: [place] [address] Electronically authenticated by: [id number] Y Date: 09/30/2025 16:31
--- OUTSIDE RECORDS SUMMARY | 2025-09-30 08:30 | XMS_ITS | Patient Health Record ---
Author Organization [facility] Address [address] [place], [place] [address] Care Team Providers Care Industrial Truck Driver Name Role Phone Gardenia Zheng Unavailable [phone] Jaimie Torres Unavailable [phone] Angeli Dixon Unavailable Allergies Allergen (clinical drug ingredient) Drug/Non Drug Allergy documented on EMR Reaction Allergy Type Onset Date Status Substance with penicillin structure and antibacterial mechanism of action (substance) Penicillins Comments: unsure Drug Allergy 09/07/2019 Active Reason For Referral Reason [id number]- [place] #30 Diagnosis 1 Necrosis of pulp (K0 4.1) Referral Organization [facility] Referring Provider First Name Vidhi Referring Provider Last Name Ward Referring Provider Speciality [facility] Referred Provider Specialty Authorizatio n General Notes Stella [place] 025 09:48:19 AM >See action- Dr. Torres gave the ok to proceed with this case. Pt is getting new insurance as of 05/18/2025. Told him to call us with the info and then we can submit the prior auth.Juan Amy 09/16/2025 04:36:21 PM >No new insurance on file yet. Referral Priority Routine Medications Medication SIG (Take, Route, Frequency, Duration) Notes Start Date End Date Status Aspirin ActiveFlonaseActive Immunizations Vaccine Route Administration Date Status Comme nts *Kmripipla-Xslgrexko-Kbefu te IM Intramuscular 08/27/2022 Administered *Sczkrskro-Blbqotfzy-LpsoqcdUA Flvtyxpyihjvf79/14/2024AdministeredInfluenza (split), 3 yrs and aboveIM Jtwkljpigckoa03/13/2014dministeredStatus:Complete ,Reason:Given or N/AInfluenza (split), 3 yrs and aboveIM Wituknrpccioi41/14/2016 AdministeredStatus:Complete ,Reason:Given or N/A ,hospital tray service worker: seqirus Influenza, inj, MDCK, preservative free, q.valentIM Fnrwtwuxedwij72/12/2018 AdministeredStatus:Complete ,Reason:Given or N/AInfluenza, inj, MDCK, preservative free, q.valentIM Sawwyigdoaljw79/21/2019AdministeredStatus:Complete ,Reason:Given or N/AInfluenza, inj, MDCK, preservative free, q.valentIM Ayqfijxudkpip70/24/2020AdministeredStatus:Complete ,Reason:Given or N/A Influenza, quadrivalent, split, preservative free, 3 years or olderIM Qasanrijalmke10/18/2021dministeredStatus:Complete ,Reason:Given or N/A Influenza, seasonal, injectable, preservative free, 3 yrs and aboveIM Gypzpasvwessd40/12/2015dministeredStatus:Complete ,Reason:Given or N/A Social History Tobacco Use: Social History Observation Description Date Details (start date - stop date) Never Smoker NA - NA Sex Assigned At : Social History Observation Description Sex Assigned At Male Tobacco Control (Standard) Question Answer Notes Tobacco use: Nonsmoker Problems Problem Type SNOMED Code ICD Code Onset Dates Problem Status W/U Status Risk Notes Problem Body mass index 30.0 0 to 34.99 (669323530705675) BMI 31.0-31.9,adult (Z68.31) ActiveconfirmedProblemNeeds influenza immunization (656279460)Flu Shot > 3 yrs old (Non-Medicare) (V04.81) (93312) (V04.81)ActiveconfirmedProblemInfluenza vaccination given (72816284697256)Influenza vaccination given (Z23)Active confirmedProblemRequires vaccination (737007696)Need for immunization against influenza (Z23)ActiveconfirmedDescription:Flu vaccine need Vital Signs Heart Rate 80 /min 04/27/2025 04/27/25- pt wt/ ht is same as before, BMI 31.56 Blood pressure diastolic 81 mm Hg 04/27/2025 6/ 025- pt wt/ht is same as before, BMI 31.56 Height-cm 177.8 cm 04/27/2025 04/27/25- pt wt/ ht is same as before, BMI 31.56 Weight-kg 99.79 kg 10/19/2024 Lfzmri19 in/09/11- pt wt/ht is same as before, BMI 31.56Blood pressure ydaipssa458 mm Hg/09/11- pt wt/ht is same as before, BMI 31.79Ljqalq707 lbs112/20/2023BMI31.56 kg/m210/19/2024 Encounters Encounter Location Date Provider Diagnosis [facility] [address] [place] [phone] 10/19/2024 Jaimie Torres Encounter for scre ening for dental disorders Z13.84 and Encounter for dental examination and cleaning with abnormal findings Z01.21 [facility] [address] [place] [phone] 04/27/2025 Gardenia Zheng Encounter for dent al examination and cleaning without abnormal findings Z01.20 ; Dietary counseling Z71.3 ; Exercise counseling Z71.82 and BMI 31.0-31.9,adult Z68.31 Assessments Encounter Date Diagnosis (ICD Code) Assessment Notes Treatment Notes Treatment Clinical Notes Section Notes 10/19/2024 Encounter for screening for dent al disorders (ICD-10 - Z13.84) 04/27/2025Encounter for dental examination and cleaning without abnormal findings (ICD-10 - Z01.20)04/27/2025Dietary counseling (ICD-10 - Z71.3) 04/27/2025Exercise counseling (ICD-10 - Z71.82)10/19/2024Encounter for dental examination and cleaning with abnormal findings (ICD-10 - Z01.21)04/27/2025MI 31.0-31.9,adult (ICD-10 - Z68.31) Plan Of Treatment Next Appt Details Provider Name:Vidhi stevenson, 11/01/2025 07:45:00 AM, [address] [place] [address], [phone], Insurance Providers Payer Name Payer Address Payer Phone Subscriber Number Group Number Insured Name Patient Relationship to Insured Coverage Start Date Coverage End Date [employer] [address] ANNIE Vizcarra [id number] Diallo Crenshaw Self - patient is the insured DAetnaPO [address] ANNIE Vizcarra [id number] Silvio Crenshawf - patient is the [id number] 2024
--- OUTSIDE RECORDS SUMMARY | 2025-09-30 08:30 | XMS_ITS | Encounter Summary ---
Author Organization [employer] [facility] tem Address [facility] [place] [address] [place] [address] Care Team Providers Care Steeping Press Operator Name Role Phone Henry Gordillo Reji INFORMATION SYSTEMS SECURITY ANALYST-WELT SOLE LAYER Primary Care Provider + Encounter Details DateTypeDepartmentCare Team (Latest Contact Info)Cblemtmkfzo89/30/2025Travel Social History Tobacco UseTypesPacks/DayYears UsedDateSmoking Tobacco: NeverSmokeless Tobacco: NeverAlcohol UseStandard Drinks/WeekCommentsYes0 (1 standard drink = 0.6 oz pure alcohol)6 drinks per weekPHQ-2AnswerDate RecordedTotal Xcxbv656/30/2025Childcare AnswerDate TqxwudmyHhbvenzmmKcolooc66/12/2019EmploymentAnswerDate Recorded WhyhhyieqoZszfvzw80/12/2019Hunger ScreeningAnswerDate RecordedWithin the past 12 months we worried whether our food would run out before we got money to buy more.Never True09/16/2025Within the past 12 months the food we bought just didn't last and we didn't have money to get more.Never True09/16/2025Purpose - LifeAnswerDate RecordedPurpose and direction in vkxnWzqqptp14/12/2021ex and Gender InformationValueDate RecordedSex Assigned at BirthNot on fileLegal Sex Male06/23/2015 11:51 AM EDTGender IdentityNot on fileSexual OrientationNot on filedocumented as of this encounter Plan of Treatment DateTypeDepartmentCare Team (Latest Contact Info)Aagqkndsrya30/18/2025 7:40 AM ESTOffice [facility] [address] [place] [address] Henry Gordillo, INFORMATION SYSTEMS SECURITY ANALYST-WELT SOLE LAYER [address] [place] [address] 10/07/2025 7:30 AM ESTAppointment [facility] - Total Rehab [address] [place] [phone] Cervical disc disorder at C6-C7 level with hyqxygeyzunjg86/17/2025 8:45 AM EST Office Visit [facility] - Pain Management Clinic [address] [place] [phone] Natividad Bermeo, PAJbC [address] [facility], 2nd [place] [address] documented as of this encounter Visit Diagnoses Not on filedocumented in this encounter Additional Health Concerns AssessmentNoted TimePHQ-9 Depression Total Score: 1:58 PM EDTA Body Mass Index follow-up plan has been documented for the oruvdfb8902/09/2025 3:36 PM EDTdocumented as of this encounter Care Teams Team MemberRelationshipSpecialtyStart DateEnd Date Henry Gordillo, INFORMATION SYSTEMS SECURITY ANALYST-WELT SOLE LAYER [address] [place] [address] PCP - GeneralInternal Medicine07/15/25documented as of this encounter
--- OUTSIDE RECORDS SUMMARY | 2025-09-30 08:30 | XMS_ITS | Encounter Summary ---
Author Organization [employer] [facility] tem Address [facility] [place]71185 [address] [place] [address] Care Team Providers Care Dialysis Clinical Manager Name Role Phone Henry Gordillo Reji CHAR FILTER OPERATOR HELPER-DRAWING TENDER Primary Care Provider + Encounter Details DateTypeDepartmentCare Team (Latest Contact Info)Sdtkdphoycx27/03/2025Travel Social History Tobacco UseTypesPacks/DayYears UsedDateSmoking Tobacco: NeverSmokeless Tobacco: NeverAlcohol UseStandard Drinks/WeekCommentsYes0 (1 standard drink = 0.6 oz pure alcohol)6 drinks per weekPHQ-2AnswerDate RecordedTotal Yjhna340/30/2025Childcare AnswerDate XhiwtxplLylijpwjcVcnhgut56/12/2019EmploymentAnswerDate Recorded MyesebjvwkKbigfqd55/12/2019Hunger ScreeningAnswerDate RecordedWithin the past 12 months we worried whether our food would run out before we got money to buy more.Never True09/16/2025Within the past 12 months the food we bought just didn't last and we didn't have money to get more.Never True09/16/2025Purpose - LifeAnswerDate RecordedPurpose and direction in frzoWwzgkac14/12/2021ex and Gender InformationValueDate RecordedSex Assigned at BirthNot on fileLegal Sex Male06/23/2015 11:51 AM EDTGender IdentityNot on fileSexual OrientationNot on filedocumented as of this encounter Plan of Treatment DateTypeDepartmentCare Team (Latest Contact Info)Acxazaytcjy16/18/2025 7:40 AM ESTOffice Visit [facility] - Family Medicine [address] [place] [address] Henry Gordillo, CHAR FILTER OPERATOR HELPER-DRAWING TENDER [address] [place] [address] 10/07/2025 7:30 AM ESTAppointment [facility] - Total Rehab [address] [place] [phone] Cervical disc disorder at C6-C7 level with ckhqmdbzkdvui13/17/2025 8:45 AM EST Office Visit [facility] - Pain Management Clinic [address] [place] [phone] Natividad Bermeo, PAJbC [address] [facility], 2nd [place] [address] documented as of this encounter Visit Diagnoses Not on filedocumented in this encounter Additional Health Concerns AssessmentNoted TimePHQ-9 Depression Total Score: 1:58 PM EDTA Body Mass Index follow-up plan has been documented for the bylahtj1702/09/2025 3:36 PM EDTdocumented as of this encounter Care Teams Team MemberRelationshipSpecialtyStart DateEnd Date Henry Gordillo, CHAR FILTER OPERATOR HELPER-DRAWING TENDER [address] [place] [address] PCP - GeneralInternal Medicine07/15/25documented as of this encounter
--- OUTSIDE RECORDS SUMMARY | 2025-09-30 08:30 | XMS_ITS | Clinical Summary ---
Author Organization [facility] Address [address] [place] [address] Care Team Providers Care Sales And Marketing Analyst Name Role Phone Sharon Wynn Unavailable [phone] Unallocated, [facility] Provider Primary Care Provi ahmet Allergies Active AllergyReactionsCriticalityNoted DateCommentsPenicillinsRash,Swelling, KgozbsuDks54/11/2017 Medications No known medications Active Problems No known active problems Immunizations ImmunizationAdministration DatesNext DueInfluenza, Injectable, MDCK, preservative free08/31/2024Influenza, injectable, MDCK, preservative free, bjerfltuvcry68/10/2022,08/11/2020,09/07/2019,09/29/2018Influenza, injectable, quadrivalent, preservative free09/04/2021Influenza, seasonal, injectable 10/01/2016,08/30/2014Influenza, seasonal, injectable, preservative free 08/29/2015Moderna SARS-CoV-2 Rhrzxywqodn35/19/2021,02/23/2021,01/26/2021Zoster, Lsmuzdeozmr77/20/2023,05/02/2023 Family History RelationNameStatusCommentsFatherDeceasedMotherAlive Social History Tobacco UseTypesPacks/DayYears UsedDateSmoking Tobacco: NeverSmokeless Tobacco: Never Tobacco Cessation:Counseling Given: Not Answered Alcohol UseStandard Drinks/WeekCommentsNot Currently0 (1 standard drink = 0.6 oz pure alcohol)Sex and Gender InformationValueDate RecordedSex Assigned at Not on fileLegal IruImbs4801/30/2023 7:17 PM EDTGender IdentityNot on fileSexual OrientationNot on file Last Filed Vital Signs Vital SignReadingTime TakenCommentsBlood Mnwvifdg526/8911 12:00 PM EST Pulse--Temperature--Respiratory Rate--Oxygen Saturation--Inhaled Oxygen Concentration--Gfmznx100 kg (233 lb)12/10/2024 10:17 AM ENBKmukgw469.8 cm (5' 10 )12/10/2024 10:17 AM ESTBody Mass Index33.43012/10/2024 10:17 AM EST Plan of Treatment DateTypeDepartmentCare Team (Latest Contact Info)Mhzhcjakjsc28/25/2025 8:00 AM ESTOffice Visit [facility] [address] [place] [address] Jr. Kyle Resendiz, DO [address] [place] [address] Health MaintenanceDue DateLast DoneCommentsCT Oqolupnkboaz1966Colonoscopy 09/20/19663023Ranyepmoiswna00/03/0640OKN93/19/FOBT COVID-19 Vaccine ( season)/, 02/23/2021, 01/26/2021Influenza Vaccine (#1)/, 08/27/2022, 09/04/2021, Additional history existsColorectal Cancer Vuiakovmn43/08/2025FIT-DNA09/25/2025 09/25/2022neumococcal Vaccine: Pediatrics (0 to 5 Years) and At-Risk Patients (6 to 64 Years)Aged OutNo longer eligible based on patient's age to complete this topic Insurance Care Teams Team MemberRelationshipSpecialtyStart DateEnd Date Unallocated, [facility] Provider, [address] [place] [address] PCP - GeneralFamily Medicine06/09/25 Sharon Wynn CRNP Referring PhysicianNurse Practitioner12/10/24
--- OUTSIDE RECORDS SUMMARY | 2025-09-30 08:30 | XMS_ITS | Clinical Summary ---
Author Organization [employer] tem Address [id number] [address] [place] [address] Care Team Providers Care Agricultural Crop Farm Manager Name Role Phone Henry Gordillo APRN-METER/RELAY TECHNICIAN Primary Care Provider + Allergies Active AllergyReactionsCriticalityNoted QfxiHmiokfeuEvnuhzdkyif13/11/2017 Medications MedicationSigDispense QuantityRefillsLast FilledStart DateEnd DateStatus aspirin 81 mg Take 1 tablet (81 mg total) by mouth in the morning.Active fluticasone (FLONASE) 50 mcg/actuation nasal spray Administer 1 spray into each nostril in the morning.Active acetaminophen (TYLENOL EXTRA STRENGTH) 500 mg tablet Take 1 tablet (500 mg total) by mouth every 6 (six) hours as needed for pain. Active ibuprofen (MOTRIN) 800 mg tablet Indications:Cervical disc disorder at C6-C7 level with radiculopathyTake 1 tablet (800 mg total) by mouth every 8 (eight) hours as needed for pain. 60 tablet 5Active traMADoL (ULTRAM) 50 mg tablet Indications:Cervical disc disorder at C6-C7 level with radiculopathyTake 1 tablet (50 mg total) by mouth every 6 (six) hours as needed for pain. 30 tablet 5Active fexofenadine-pseudoephedrine (RUPESH-D 24 HOUR) 180-240 mg per 24 hr tablet Indications:Chronic seasonal allergic rhinitisTake 1 tablet by mouth daily as needed for allergies or rhinitis. 30 tablet Discontinued(Therapy completed) AIRSUPRA 90-80 mcg/actuation HFA aerosol inhaler TAKE 2 PUFFS INHALED EVERY 4-6 HOURS NEEDED FOR COUGH/WHEEZING/SOB02/01/2025 09/16/2025Discontinued(Therapy completed) doxycycline (MONODOX) 100 mg capsule TAKE 1 CAPSULE (100 MG) BY ORAL ROUTE TWICE A DAY FOR 10 DAYS. TAKE WITH FOOD. Discontinued(Therapy completed) traMADoL (ULTRAM) 50 mg tablet Take 1 tablet (50 mg total) by mouth every 6 (six) hours as needed for pain. 09/23/2025Discontinued(Reorder) diclofenac (VOLTAREN) 50 mg EC tablet Take 1 tablet (50 mg total) by mouth in the morning and 1 tablet (50 mg total) before bedtime.09/23/2025Discontinued(Alternate therapy) dexAMETHasone 20 mg tablet Indications:Cervical disc disorder at C6-C7 level with radiculopathyTake 20 mg by mouth daily with breakfast for 5 days. 5 tablet /03/2025Expired Additional Information Patient not taking.Reported on 09/23/2025 ibuprofen (ADVIL,MOTRIN) 200 mg tablet Take 1 tablet (200 mg total) by mouth every 6 (six) hours as needed for pain. 09/23/2025Discontinued(Alternate therapy) Active Problems Patient Care Coordination No te Formatting of this note is d ifferent from the original. 2016 declDATE WHEN VACCINE ------- --FLU YRLY IN FALL 2016 declined --TETANUS Q 10 YRS ? --HSV ONCE AGE 61 na --PREVNAR 13 ONCE AGE 66 na --PPSSV 23 ONCE AGE 67 na CA SCREENING ----- --COLONOSCOPY AGE 50 - 75 declined --FIT AGE 50 - 75 07/2017 neg --PSA AGE 50 - 70 07/2017 nl -FRANKIE AGE 50 - 70 --PAP AGE 21 - 65 na --MAMMOGRAM AGE 45 TO 75 na OSTEOPOROSIS ----- --DEXA MENOPAUSAL na OPTHO YEALRY DENTAL YEARLY TOBACCO USE YEARLY never OBESITY BMI > 30 OVERWT BMI 25 -29 NORMAL BMI 18.5 -24.9 YEARLY YEARLY YEARLY 32.4 MEDICARE WELLNESS YEARLY (66) na DM FOOT EXAM DM SHOES YEARLY na ProblemNoted DateDiagnosed DatePrimary osteoarthritis of right knee02/10/2025 Primary osteoarthritis of left knee5Chronic pain of right knee 10/07/2019Annual physical exam10/07/2019Class 1 obesity due to excess calories without serious comorbidity with body mass index (BMI) of 31.0 to 31.9 in adult 10/07/2019Chronic seasonal allergic /24/2019 Resolved Problems ProblemNoted DateDiagnosed DateResolved DateAcute ppwebekqedws09/02/2020 1Congestion of paranasal sinus1Acute bacterial tnnvuxtoa75cute otitis media, wjliwfnoh13 Encounters DateTypeDepartmentCare UpxwAwpkrcjljng47/10/7349Bysdli86/07/2025Nurse Triage [facility] [address] [place] [address] Deisy Bernal RN 09/23/2025 11:45 AM ESTOffice Visit [facility] [address] [place] [address] Henry Gordillo, CRISTINA-CARY Cervical disc disorder at C6-C7 level with radiculopathy (Primary Dx)09/23/2025 Ytzrmd2509/22/2025 8:15 AM ESTOffice Visit [facility] [address] [facility] [place] [address] Natividad Bermeo, VINITAC Chronic pain of right knee (Primary Dx); Primary osteoarthritis of right knee; Primary osteoarthritis of left knee09/20/20259396Roglhx15/30/2025 2:00 PM EDTOffice Visit [facility] [address] [place] [address] Henry Gordillo, NATUROPATHIC ONCOLOGY PROVIDER-METER/RELAY TECHNICIAN Cervical disc disorder at C6-C7 level with radiculopathy (Primary Dx)09/16/2025 Nciajy5608/24/2025Travelfrom Last 3 Months Immunizations ImmunizationAdministration DatesNext DueInfluenza (IM) Preservative Free 08/29/2015Influenza, Im Trivalent Ukzevvavpnwn13/14/2016,08/30/2014Influenza, Injectable, Mdck, Preservative Free, Quad08/27/2022,08/11/2020,09/07/2019, 09/29/2018Influenza, Injectable, quadrivalent (PF)09/04/2021Zoster Vaccine Ubmskrdnfip01/15/2023 Family History Medical HistoryRelationNameCommentsDiabetesFatherHeart attackFatherHeart disease FatherHyperlipidemiaFatherBreast cancerMotherCOPDMotherHeart failureMother HyperlipidemiaMotherHypertensionMotherStrokeMotherDiabetesSonRelationNameStatus CommentsFatherDeceasedMotherAliveSon Social History Tobacco UseTypesPacks/DayYears UsedDateSmoking Tobacco: NeverSmokeless Tobacco: Never Tobacco Cessation:Counseling Given: Not Answered Alcohol UseStandard Drinks/WeekCommentsYes0 (1 standard drink = 0.6 oz pure alcohol)6 drinks per weekPHQ-2AnswerDate RecordedTotal Gecgs831Overall Financial Resource Strain (CARDIA)AnswerDate RecordedHow hard is [...] as a part of a household?No09/23/2025hildcareAnswer Date YqdwcgdiSywoteremHyhfcos73/12/2019EmploymentAnswerDate RecordedEmployment Plcfxna7104/29/2019Hunger ScreeningAnswerDate RecordedWithin the past 12 months we worried whether our food would run out before we got money to buy more.Never True09/23/2025Within the past 12 months the food we bought just didn't last and we didn't have money to get more.Never True09/23/2025Purpose - LifeAnswerDate RecordedPurpose and direction in lhyiByihiyw42/12/2021ex and Gender Information ValueDate RecordedSex Assigned at BirthNot on fileLegal IaeRneo8606/23/2015 11:51 AM EDTGender IdentityNot on fileSexual OrientationNot on file Last Filed Vital Signs Vital SignReadingTime TakenCommentsBlood Rcbicsvj080/7209/23/2025 11:52 AM EST Ahmhj640009/23/2025 11:52 AM WFWCxwoiuxkxpv44.2 ??C (97.2 ??F)09/23/2025 11:52 AM ESTRespiratory Hehd198111/23/2024 11:52 AM ESTOxygen Leavqkxgty17%09/23/2025 11:52 AM ESTInhaled Oxygen Concentration--Jceonc597.8 kg (231 lb)09/23/2025 11:52 AM XAXUoyhcu917.8 cm (5' 10 )09/23/2025 11:52 AM ESTBody Mass Index33.15111/23/2024 11:52 AM EST Plan of Treatment DateTypeDepartmentCare Team (Latest Contact Info)Lvwivcujldj39/18/2025 7:40 AM ESTOffice Visit [facility] [address] [place] [phone] Henry Gordillo, NATUROPATHIC ONCOLOGY PROVIDER-METER/RELAY TECHNICIAN [address] [place] [address] 10/07/2025 7:30 AM ESTAppointment [facility] [address] [place] [phone] Cervical disc disorder at C6-C7 level with xjonkyvpgrwno97/17/2025 8:45 AM EST Office Visit [facility] [address] [place] [phone] Natividad Bermeo, PAAaliyah [address] [place] [address] Health MaintenanceDue DateLast DoneCommentsDTaP,Tdap and Td Vaccines (1 - Tdap) 1985Colon Cancer Screening Annual FOBTCOVID-19 Vaccine (4 - 2024- season)/, 02/23/2021, 01/26/2021dult BMI Follow Up Plan/Depression Xxspywelw63/Tobacco Twggunpmf88/dult BMI Qlqospiuc02/04/2025Zoster (Shingles) GuisvueQgajijyxg90/20/2023, 05/02/2023 Medical Devices Not on file Procedures Procedure NamePriorityDate/TimeAssociated DiagnosisCommentsIMMUNE FECAL OB - FIT Wirqgvb0208/06/2017 2:05 PM EDT Colon cancer screening from Last 3 Months or Most Recently Relevant to Health Maintenance Results * Immune Fecal OB - FIT (08/06/2017 2:05 PM EDT)ComponentValueRef RangeTest MethodAnalysis TimePerformed AtPathologist SignatureImmune fecal obNegative Cjommuox65/25/2017 12:45 PM EDTTKETTERING [facility]ALTH [facility] LABORATORYSpecimen (Source)Anatomical Location / LateralityCollection Method / VolumeCollection TimeReceived Time08/06/2017 2:05 PM EDT08/09/2017 2:05 PM EDT Narrative Authorizing ProviderResult TypeResult StatusEugenia Ilo DOBODY FLUIDS AND STOOLS ORDERABLESFinal ResultPerforming OrganizationAddressCity/State/ZIP CodePhone Number [facility] [address] [place] [address], from Last 3 Months or Most Recently Relevant to Health Maintenance Insurance Care Teams Team MemberRelationshipSpecialtyStart DateEnd Date Henry Gordillo, CRISTINA-METER/RELAY TECHNICIAN [address] [place] [address] PCP - GeneralInternal Medicine07/15/25
== END 2025-09-30 08:28 | disposition home or self-care (01) ==
LOC: MRI 08:27
PROVIDERS: PCP Nurse Practitioner Family; Visit Provider Nurse Practitioner Family
DX: M50.123 Cervical disc disorder at C6-C7 level with radiculopathy (principal)
CPT/HCPCS: 72141